=== PATIENT | male | born 1975 | race American Indian/Alaskan Native ===

== ENCOUNTER 2017-06-17 15:13 | Emergency (ER) | payer SELFPAY ==
[2017-06-17 15:32] VITALS: BP 142/90
== END 2017-06-17 17:47 | disposition left against medical advice (07) ==
LOC: ED 15:13
DX: M54.9 Dorsalgia, unspecified (principal); Z53.21 Procedure and treatment not carried out due to patient leaving prior to being seen by health care provider

== ENCOUNTER 2017-07-03 10:36 | Emergency (ER) | payer OTHER ==
[2017-07-03 10:44] VITALS: BP 151/96
[2017-07-03 11:53] LABS: Hematocrit 43.2 % (35.5-45.6); Hemoglobin 14.5 gm/dl (11.8-15.2); Mean Corpuscular HGB Conc 34 % (32-34); Mean Corpuscular Hemoglobin 32 pg (28-32); Mean Corpuscular Volume 96 fl (84-94); Platelet Count 217 K/mm3 (140-440); Red Blood Count 4.52 M/mm3 (3.65-5.03)
--- NOTE | 2017-07-03 12:07 | XRay Report ---
Chest 2 views: History: Cough and chest pain. Findings: Normal cardiomediastinal silhouette. Trachea is midline. No consolidation, pneumothorax or pleural effusion. Impression: No acute cardiopulmonary findings.
[2017-07-03 12:30] LABS: BUN/Creatinine Ratio 7; Blood Urea Nitrogen 6 mg/dL (9-20); Calcium 9.4 mg/dL (8.4-10.2); Hemolysis Index 13
--- NOTE | 2017-07-03 15:13 | Emergency Department Report ---
Minor Respiratory - HPI Chief Complaint: Upper Respiratory Infection Stated Complaint: FLU LIKE SYMPTOMS Time Seen by Provider: 07/03/17 15:11 ED Review of Systems ROS: Stated complaint: FLU LIKE SYMPTOMS Other details as noted in HPI ED Past Medical Hx - Past Medical History Previous Medical History?: Yes Hx Asthma: Yes Additional medical history: chronic back pain - Surgical History Past Surgical History?: No - Social History Smoking Status: Never Smoker Substance Use Type: Prescribed - Medications Home Medications: Home Medications Medication Instructions Recorded Confirmed Last Taken Type ALBUTEROL Inhaler [Proair] 2 puff IH QID PRN 04/10/13 04/10/13 04/17/13 09:00 History HYDROcodone/APAP 5-325 [[place] 1 each PO Q6HR PRN #15 tablet 04/10/13 04/16/13 13:00 Rx 5/325 mg] Methocarbamol [Robaxin] 750 mg PO BID #14 tab 04/10/13 04/16/13 21:00 Rx Cyclobenzaprine [Flexeril] 10 mg PO BID PRN #14 tablet 04/17/13 Unknown Rx Hydrocodone Bit/Acetaminophen 1 - 2 each PO Q4-6H #14 tablet 04/17/13 Unknown Rx [Lortab 5-500 Tablet] Benzonatate 200 mg PO TID #30 capsule 07/03/17 Unknown Rx Fluticasone [Flonase] 1 spray NS QDAY #1 bottle 07/03/17 Unknown Rx Oseltamivir [Tamiflu] 75 mg PO BID 5 Days #10 cap 07/03/17 Unknown Rx Minor Respiratory Exam - Exam General: Vital signs noted. No distress. Alert and acting appropriately. Neurologic: Alert and oriented, no deficits. Musculoskeletal: Unremarkable. ED Course Vital Signs 07/03/17 10:40 Temperature 97.8 F Pulse Rate 108 H Respiratory 20 Rate Blood Pressure 151/96 O2 Sat by Pulse 98 Oximetry ED Medical Decision Making - Lab Data Result diagrams: 07/03/17 11:37 07/03/17 11:37 - Radiology Data Radiology results: image reviewed Findings: Normal cardiomediastinal silhouette. Trachea is midline. No consolidation, pneumothorax or pleural effusion. Impression: No acute cardiopulmonary findings. - Medical Decision Making 42 y.o. male presents with flu-like symptoms for 2 days. Currently taking theraflu, mucinex, and amoxicillin. WBC 11.9, on amoxicillin for tooth caries, taken for 3 days, f/u with dentist after 7 days of antibiotics. EKG: SR, CXR: normal, rapid influenza: negative Appears to be viral syndrome, started on tamiflu, benzonatate, and flonase. Follow-up with PCP or ER if symptoms are not improved. Critical care attestation.: If time is entered above; I have spent that time in minutes in the direct care of this critically ill patient, excluding procedure time. ED Disposition Clinical Impression: Viral syndrome URI (upper respiratory infection) Qualifiers: URI type: acute nasopharyngitis (common cold) Qualified Code(s): J00 - Acute nasopharyngitis [common cold] Disposition: TO HOME OR SELFCARE Is pt being admited?: No Does the pt Need Aspirin: No Condition: Stable Instructions: Viral Syndrome (ED), Cold Symptoms (ED), Upper Respiratory Infection (ED) Additional Instructions: Wash hands frequently. The cough can last for 2-3 weeks. Use tylenol and ibuprofen should be taken with regular fluid intake. Follow up with primary care provider. Seek medical attention if fever, headache, wheezing, or chest symptoms worsen. If drowsy or confused in the short term or if cough last longer than 4 weeks. Prescriptions: Benzonatate 200 mg PO TID #30 capsule Fluticasone [Flonase] 1 spray NS QDAY #1 bottle Oseltamivir [Tamiflu] 75 mg PO BID 5 Days #10 cap Referrals: PRIMARY CARE, [Primary Care Provider] - 3-5 Days [facility] [Outside] - 3-5 Days [facility] [Outside] - 3-5 Days [facility] [Outside] - 3-5 Days [facility] [Outside] - 3-5 Days Time of Disposition: 16:38 Print Language: COLOMBIAN
== END 2017-07-03 16:47 | disposition home or self-care (01) ==
LOC: ED 10:36
DX: J00 Acute nasopharyngitis [common cold] (principal); J06.9 Acute upper respiratory infection, unspecified; M54.5 Low back pain; G89.29 Other chronic pain
CPT/HCPCS: 36415; 71046; 80048; 85027; 87400; 93005; 93010; 99284

== ENCOUNTER 2019-09-12 17:36 | Emergency (ER) | payer SELFPAY ==
[2019-09-12 18:04] VITALS: BP 157/94
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
[2019-09-12 18:33] LABS: Basophils # (Auto) 0.1 K/mm3 (0.0-0.1); Basophils % (Auto) 1.4 % (0.0-1.8); Eosinophils # (Auto) 0.1 K/mm3 (0.0-0.4); Eosinophils % (Auto) 0.5 % (0.0-4.3); Hematocrit 41.6 % (35.5-45.6); Hemoglobin 14.6 gm/dl (11.8-15.2); Lymphocytes # (Auto) 1.9 K/mm3 (1.2-5.4); Lymphocytes % (Auto) 19.9 % (13.4-35.0); Mean Corpuscular HGB Conc 35 % (32-34); Mean Corpuscular Volume 92 fl (84-94); Monocytes # (Auto) 0.6 K/mm3 (0.0-0.8); Monocytes % (Auto) 6.5 % (0.0-7.3); Platelet Count 296 K/mm3 (140-440); Red Cell Distribution Width 13.5 % (13.2-15.2)
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
[2019-09-12 18:44] LABS: BUN/Creatinine Ratio 8; Blood Urea Nitrogen 9 mg/dL (9-20); Calcium 9.9 mg/dL (8.4-10.2); Hemolysis Index 7
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
--- NOTE | 2019-09-12 19:19 | Ultrasound Report ---
Scrotal ultrasound INDICATION: Testicular pain FINDINGS: The right testis measures 3.4 x 2.5 x 2.3 cm. It shows homogeneous echogenicity without int ra or extratesticular mass. There is good arterial flow to the right testis with no evidence of torsi on. There is a minimal right hydrocele. No epididymitis. The left testis measures 3.6 x 3.1 x 2.1 cm and also shows homogeneous echogenicity without mass or torsion. Small left hydrocele is seen as well . IMPRESSION: No significant abnormality. Signer Name: Juan Jose Rubin MD Signed: 09/12/2019 7:14 PM Workstation Name: [id number]
[2019-09-12] MEDS ORDERED: oxyCODONE /ACETAMINOPHEN 5-325MG TAB PO ONE (19:41)
[2019-09-12] MEDS ORDERED: CYCLOBENZAPRINE 10 MG TAB PO ONE (19:41)
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
--- NOTE | 2019-09-12 20:30 | XRay Report ---
CHEST 1 VIEW INDICATION / CLINICAL INFORMATION: shortness of breath. COMPARISON: 07/03/2017 FINDINGS: SUPPORT DEVICES: None. HEART / MEDIASTINUM: No significant abnormality. LUNGS / PLEURA: No significant pulmonary or pleural abnormality. No pneumothorax. ADDITIONAL FINDINGS: No significant additional findings. IMPRESSION: 1. No significant change Signer Name: Juan Jose Rubin MD Signed: 09/12/2019 8:26 PM Workstation Name: [id number]
== END 2019-09-12 20:29 | disposition home or self-care (01) ==
LOC: ED 17:36
DX: S39.012A Strain of muscle, fascia and tendon of lower back, initial encounter (principal); F17.200 Nicotine dependence, unspecified, uncomplicated; J45.909 Unspecified asthma, uncomplicated; N50.82 Scrotal pain; R51 Headache; V49.49XA Driver injured in collision with other motor vehicles in traffic accident, initial encounter; Y93.89 Activity, other specified; Y92.89 Other specified places as the place of occurrence of the external cause; Y99.8 Other external cause status
CPT/HCPCS: 36415; 70450; 71045; 72100; 72125; 80048; 85025; 93975

== ENCOUNTER 2021-03-29 11:48 | Emergency (ER) | payer SELFPAY ==
[2021-03-29 12:07] VITALS: BP 140/78
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
== END 2021-03-29 12:58 | disposition home or self-care (01) ==
LOC: ED 11:48
DX: J01.90 Acute sinusitis, unspecified (principal); J20.9 Acute bronchitis, unspecified; J45.909 Unspecified asthma, uncomplicated; F17.200 Nicotine dependence, unspecified, uncomplicated; G89.29 Other chronic pain; Z72.89 Other problems related to lifestyle; Z79.899 Other long term (current) drug therapy
CPT/HCPCS: 99282

== ENCOUNTER 2021-04-01 15:02 | Emergency (ER) | payer SELFPAY ==
[2021-04-01] MEDS ORDERED: IPRATROPIUM/ALBUTEROL SULFATE 3 ML AMPUL.NEB IH ONE (15:15)
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
[2021-04-01 15:30] VITALS: BP 153/109
[2021-04-01] MEDS ORDERED: predniSONE 20 MG TAB PO NR (16:00)
== END 2021-04-01 15:54 | disposition home or self-care (01) ==
LOC: ED 15:02
DX: J45.901 Unspecified asthma with (acute) exacerbation (principal); Z76.0 Encounter for issue of repeat prescription; R03.0 Elevated blood-pressure reading, without diagnosis of hypertension; F17.210 Nicotine dependence, cigarettes, uncomplicated; G89.29 Other chronic pain; Z79.899 Other long term (current) drug therapy
CPT/HCPCS: 94640; 99282

== ENCOUNTER 2021-04-14 09:22 | Emergency (ER) | payer SELFPAY ==
[2021-04-14 09:37] VITALS: BP 140/94
--- NOTE | 2021-04-14 10:14 | Emergency Department Report ---
ED General Adult HPI - General Chief complaint: Chest Pain Stated complaint: CHEST PAIN Time Seen by Provider: 04/14/21 10:01 Source: patient Mode of arrival: Ambulatory Limitations: No Limitations - History of Present Illness Initial comments: Patient is 46 years old male with history of hypertension and asthma. Patient presented to the ER complaining of right-sided chest pain is been going on for 2 weeks ago. Patient stated the symptoms started with cough congestion and shortness of breath and he is feeling he is getting better however the chest pain still. Patient describes his chest pain as sharp increase with deep inspiration. Patient currently denying any fever or chills. Patient denied any long period of immobilization. - Related Data Previous Rx's Medication Instructions Recorded Last Taken Type ALBUTEROL NEB's [Proventil 0.083% 2.5 mg IH TID PRN #1 box 04/01/21 Unknown Rx NEBS] Albuterol Mdi (or & Nicu Only) 2 puff IH QID PRN #1 inhalation 04/01/21 Unknown Rx [ProAir HFA Inhaler] predniSONE [Deltasone] 20 mg PO DAILY #5 tablet 04/01/21 Unknown Rx Naproxen [Naprosyn] 500 mg PO BID #14 tablet 04/14/21 Unknown Rx Allergies Allergy/AdvReac Type Severity Reaction Status Date / Time No Known Allergies Allergy Verified 04/14/21 09:34 ED Review of Systems ROS: Stated complaint: CHEST PAIN Other details as noted in HPI Comment: All other systems reviewed and negative Constitutional: denies: chills, fever Respiratory: cough. denies: orthopnea, shortness of breath, SOB with exertion, SOB at rest, wheezing Cardiovascular: chest pain, palpitations. denies: dyspnea on exertion, ort hopnea Gastrointestinal: denies: abdominal pain, nausea, vomiting Musculoskeletal: denies: back pain Neurological: denies: headache, weakness, numbness, paresthesias, confusion ED Past Medical Hx - Past Medical History Hx Hypertension: Yes Hx Asthma: Yes Additional medical history: chronic back pain - Surgical History Past Surgical History?: No - Social History Smoking Status: Current Every Day Smoker Substance Use Type: Alcohol - Medications Home Medications: Home Medications Medication Instructions Recorded Confirmed Last Taken Type ALBUTEROL NEB's [Proventil 0.083% 2.5 mg IH TID PRN #1 box 04/01/21 Unknown Rx NEBS] Albuterol Mdi (or & Nicu Only) 2 puff IH QID PRN #1 inhalation 04/01/21 Unknown Rx [ProAir HFA Inhaler] predniSONE [Deltasone] 20 mg PO DAILY #5 tablet 04/01/21 Unknown Rx Naproxen [Naprosyn] 500 mg PO BID #14 tablet 04/14/21 Unknown Rx ED Physical Exam - General Limitations: No Limitations General appearance: alert, in no apparent distress - Head Head exam: Present: atraumatic, normocephalic, normal inspection - Eye Eye exam: Present: normal appearance, PERRL - ENT ENT exam: Present: normal exam, normal orophraynx, mucous membranes moist - Neck Neck exam: Present: normal inspection, full ROM. Absent: tenderness, meningismus - Respiratory Respiratory exam: Present: normal lung sounds bilaterally - Cardiovascular Cardiovascular Exam: Present: tachycardia - GI/Abdominal GI/Abdominal exam: Present: soft, normal bowel sounds. Absent: distended, tenderness, guarding, rebound, rigid, organomegaly, bruit, pulsatile mass, hernia - Extremities Exam Extremities exam: Present: normal inspection, full ROM, normal capillary refill. Absent: tenderness - Back Exam Back exam: Present: normal inspection, full ROM. Absent: CVA tenderness (R), CVA tenderness (L) - Neurological Exam Neurological exam: Present: alert, oriented X3, CN II-XII intact, normal gait, reflexes normal. Absent: motor sensory deficit - Psychiatric Psychiatric exam: Present: normal mood - Skin Skin exam: Present: warm, intact, normal color ED Course Vital Signs 04/14/21 09:35 Temperature 98 F Pulse Rate 111 H Respiratory 18 Rate Blood Pressure 140/94 [Right] O2 Sat by Pulse 100 Oximetry ED Medical Decision Making - Lab Data Result diagrams: 04/14/21 10:19 04/14/21 10:19 - EKG Data -: EKG Interpreted by Md EKG shows normal: sinus rhythm Rate: tachycardia - Radiology Data Radiology results: report reviewed - Medical Decision Making Patient is 46 years old male with history of hypertension and asthma. Patient presented to the ER complaining of right-sided chest pain is been going on for 2 weeks ago. Patient stated the symptoms started with cough congestion and shortness of breath and he is feeling he is getting better however the chest pain still. Patient describes his chest pain as sharp increase with deep inspiration. Patient currently denying any fever or chills. Patient denied any long period of immobilization. Patient remained stable in the ER with stable vital signs except for tachycardia of 111. EKG shows sinus tachycardia. Labs reviewed and is unremarkable including a negative troponin however his D-dimer is 500. Patient received a CTA of the chest showed no evidence of pulmonary embolism or pneumonia. Patient symptom is most likely related to pleurisy or costochondritis however patient strongly advised to follow-up with his primary doctor in the next 2 to 3 days and to return to the ER if he develop any new symptoms or if his symptoms get worse. Critical care attestation.: If time is entered above; I have spent that time in minutes in the direct care of this critically ill patient, excluding procedure time. ED Disposition Clinical Impression: Acute chest pain, Pleurisy Disposition: 01 HOME / SELF CARE / HOMELESS Is pt being admited?: No Condition: Stable Instructions: Nonspecific Chest Pain, Adult, Pleurisy, [id number], Chest Pain (ED) Prescriptions: Naproxen [Naprosyn] 500 mg PO BID #14 tablet Referrals: PRIMARY CARE, [Primary Care Provider] - 3-5 Days
--- NOTE | 2021-04-14 10:41 | XRay Report ---
CHEST 2 VIEWS INDICATION: Chest Pain. COMPARISON: 09/12/2019 FINDINGS: Support devices: None. Heart: Within normal limits. Lungs/pleura: No acute air space or interstitial disease. No pneumothorax. Additional findings: None. IMPRESSION: No acute findings. Signer Name: Yovani Padgett Jr, MD Signed: 04/14/2021 10:37 AM Workstation Name: [id number]
[2021-04-14 11:03] LABS: BUN/Creatinine Ratio 13; Blood Urea Nitrogen 10 mg/dL (9-20); Calcium 9.6 mg/dL (8.4-10.2); Hemolysis Index 12
[2021-04-14 11:13] LABS: Alanine Aminotransferase 14 units/L (7-56); Albumin 4.6 g/dL (3.9-5)
[2021-04-14 11:14] LABS: Bilirubin,Direct < 0.2 mg/dL (0-0.2)
[2021-04-14 11:31] LABS: Basophils # (Auto) 0.1 K/mm3 (0.0-0.1); Eosinophils # (Auto) 1.1 K/mm3 (0.0-0.4); Eosinophils % (Auto) 8.6 % (0.0-4.3); Hematocrit 46.8 % (35.5-45.6); Hemoglobin 16.2 gm/dl (11.8-15.2); Lymphocytes # (Auto) 2.7 K/mm3 (1.2-5.4); Lymphocytes % (Auto) 21.4 % (13.4-35.0); Mean Corpuscular HGB Conc 35 % (32-34); Mean Corpuscular Volume 95 fl (84-94); Monocytes % (Auto) 8.1 % (0.0-7.3); Platelet Count 315 K/mm3 (140-440); Red Blood Count 4.94 M/mm3 (3.65-5.03); Red Cell Distribution Width 13.9 % (13.2-15.2)
--- NOTE | 2021-04-14 13:35 | Cat Scan Report ---
CTA CHEST WITH CONTRAST INDICATION / CLINICAL INFORMATION: Chest pain with shortness of breath. TECHNIQUE: Axial CT images were obtained through the chest after injection of Omnipaque 300, 100 cc I V contrast. 3 plane MIP and/or 3D reconstructions were produced. All CT scans at this location are pe rformed using CT dose reduction for ALARA by means of automated exposure control. COMPARISON: None available. FINDINGS: PULMONARY ARTERIES: No pulmonary emboli. THORACIC AORTA: No significant abnormality. HEART: No significant abnormality. CORONARY ARTERY CALCIFICATION: None. MEDIASTINUM / SHA: No significant abnormality. PLEURA: No pleural effusion. No pneumothorax. LUNGS: No acute air space or interstitial disease. ADDITIONAL FINDINGS: None. UPPER ABDOMEN: No acute findings. SKELETAL STRUCTURES: No significant osseous abnormality. IMPRESSION: 1. No CT evidence for pulmonary embolism. 2. Negative for pneumonia. Signer Name: Alexsander Hagen MD Signed: 04/14/2021 1:30 PM Workstation Name: [id number]
--- NOTE | 2021-04-15 10:55 | Electrocardiograph Report ---
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
== END 2021-04-14 14:10 | disposition home or self-care (01) ==
LOC: ED 09:22
DX: R07.89 Other chest pain (principal); R07.81 Pleurodynia; I10 Essential (primary) hypertension; J45.909 Unspecified asthma, uncomplicated; F17.200 Nicotine dependence, unspecified, uncomplicated; G89.29 Other chronic pain; Z72.89 Other problems related to lifestyle; Z79.899 Other long term (current) drug therapy
CPT/HCPCS: 36415; 71046; 71275; 80048; 80076; 84484; 85025; 85379; 93005; 99284; Q9967

== ENCOUNTER 2021-05-07 15:28 | Emergency (ER) | payer SELFPAY | END 2021-05-07 16:28 | LOC: ED 15:28 | DX: J11.1 Influenza due to unidentified influenza virus with other respiratory manifestations (principal); Z53.21 Procedure and treatment not carried out due to patient leaving prior to being seen by health care provider ==

== ENCOUNTER 2021-05-15 14:46 | Emergency (ER) | payer SELFPAY ==
[2021-05-15 15:02] VITALS: BP 106/71
--- NOTE | 2021-05-15 16:07 | Emergency Department Report ---
- General Chief Complaint: Adult Asthma Stated Complaint: ASTHMA Time Seen by Provider: 05/15/21 15:57 Source: patient Mode of arrival: Ambulatory Limitations: No Limitations - History of Present Illness Initial Comments: 46-year-old male presents to the emergency department complaining of cough, congestion, and body aches. The patient states that his symptoms started about 1 week ago. He has a history of asthma and states that he only gets sick about once every 5 years. This current episode seems to be getting worse and he is running out of his albuterol with his nebulizer and his rescue inhaler is empty. His cough is productive with a hurd to brown mucus. He states that he is coughing so hard that it is causing his neck and back to hurt. He is unaware of any fevers and denies any hemoptysis. He did have an episode of posttussive emesis at work today and had to leave. MD Complaint: cough, nasal congestion -: Gradual Severity: severe Quality: dull Consistency: constant Improves With: nothing Worsens With: activity, deep breaths Associated Symptoms: myalgias, headache, cough, vomiting. denies: fever, chills, chest pain, abdominal pain, nausea Treatments Prior to Arrival: Acetaminophen, Ibuprofen, "cold medicine" - Related Data Previous Rx's Medication Instructions Recorded Last Taken Type Naproxen [Naprosyn] 500 mg PO BID #14 tablet 04/14/21 Unknown Rx ALBUTEROL NEB's [Proventil 0.083% 2.5 mg IH TID PRN #1 box 05/15/21 Unknown Rx NEBS] Albuterol Mdi (or & Nicu Only) 2 puff IH QID PRN #1 inhalation 05/15/21 Unknown Rx [ProAir HFA Inhaler] Promethazine Dm (Nf) [Phenergan Dm 5 ml PO Q6H PRN #120 ml 05/15/21 Unknown Rx 6.25/15 mg 5 ml] predniSONE [Deltasone] 20 mg PO DAILY #5 tablet 05/15/21 Unknown Rx Allergies Allergy/AdvReac Type Severity Reaction Status Date / Time No Known Allergies Allergy Verified 05/15/21 15:02 ED Review of Systems ROS: Stated complaint: ASTHMA Other details as noted in HPI Comment: All other systems reviewed and negative ENT: congestion Respiratory: cough, SOB with exertion, wheezing Gastrointestinal: vomiting ED Past Medical Hx - Past Medical History Hx Hypertension: Yes Hx Asthma: Yes Additional medical history: chronic back pain - Social History Smoking Status: Current Every Day Smoker Substance Use Type: Alcohol - Medications Home Medications: Home Medications Medication Instructions Recorded Confirmed Last Taken Type Naproxen [Naprosyn] 500 mg PO BID #14 tablet 04/14/21 Unknown Rx ALBUTEROL NEB's [Proventil 0.083% 2.5 mg IH TID PRN #1 box 05/15/21 Unknown Rx NEBS] Albuterol Mdi (or & Nicu Only) 2 puff IH QID PRN #1 inhalation 05/15/21 Unknown Rx [ProAir HFA Inhaler] Promethazine Dm (Nf) [Phenergan Dm 5 ml PO Q6H PRN #120 ml 05/15/21 Unknown Rx 6.25/15 mg 5 ml] predniSONE [Deltasone] 20 mg PO DAILY #5 tablet 05/15/21 Unknown Rx ED Physical Exam - General Limitations: No Limitations General appearance: alert, in no apparent distress - Head Head exam: Present: atraumatic, normocephalic - Eye Eye exam: Present: normal appearance - ENT ENT exam: Present: mucous membranes moist - Neck Neck exam: Present: normal inspection - Respiratory Respiratory exam: Present: normal lung sounds bilaterally. Absent: respiratory distress - Cardiovascular Cardiovascular Exam: Present: regular rate, normal rhythm. Absent: systolic murmur, diastolic murmur, rubs, gallop - GI/Abdominal GI/Abdominal exam: Present: soft, normal bowel sounds - Rectal Rectal exam: Present: deferred - Extremities Exam Extremities exam: Present: normal inspection - Back Exam Back exam: Present: normal inspection - Neurological Exam Neurological exam: Present: alert, oriented X3 - Psychiatric Psychiatric exam: Present: normal affect, normal mood - Skin Skin exam: Present: warm, dry, intact, normal color. Absent: rash ED Course Vital Signs 05/15/21 15:00 Temperature 98.3 F Pulse Rate 87 Respiratory 18 Rate Blood Pressure 106/71 [Left] O2 Sat by Pulse 96 Oximetry ED Medical Decision Making - Medical Decision Making 46-year-old male with a history of asthma presents to the emergency department with upper respiratory symptoms. He denies fevers, hemoptysis, chest pain, palpitations, or lower extremity swelling. His exam is consistent with bronchitis. He states that he does have a tendency to develop pneumonia when he starts to get this sick and is concerned he may develop pneumonia again. He is amenable to outpatient treatment and I will send him home with antibiotics, steroids, and more albuterol, as well as some cough medicine. He will follow-up with his primary care provider. Return precautions were given. Critical care attestation.: If time is entered above; I have spent that time in minutes in the direct care of this critically ill patient, excluding procedure time. ED Disposition Clinical Impression: Acute bronchitis Disposition: HOME / SELF CARE / HOMELESS Is pt being admited?: No Does the pt Need Aspirin: No Condition: Stable Instructions: Acute Bronchitis (ED), Acute Bronchitis, Adult Prescriptions: predniSONE [Deltasone] 20 mg PO DAILY #5 tablet Promethazine Dm (Nf) [Phenergan Dm 6.25/15 mg 5 ml] 5 ml PO Q6H PRN #120 ml PRN Reason: Cough Albuterol Mdi (or & Nicu Only) [ProAir HFA Inhaler] 2 puff IH QID PRN #1 inhalation PRN Reason: Shortness Of Breath ALBUTEROL NEB's [Proventil 0.083% NEBS] 2.5 mg IH TID PRN #1 box PRN Reason: Wheezing Time of Disposition: 16:12
== END 2021-05-15 16:20 | disposition home or self-care (01) ==
LOC: ED 14:46
DX: J20.9 Acute bronchitis, unspecified (principal); I10 Essential (primary) hypertension; J45.909 Unspecified asthma, uncomplicated; F17.200 Nicotine dependence, unspecified, uncomplicated
CPT/HCPCS: 99282

== ENCOUNTER 2021-06-24 14:18 | Emergency (ER) | payer SELFPAY ==
[2021-06-24 14:25] VITALS: BP 123/77
--- NOTE | 2021-06-24 16:16 | Emergency Department Report ---
ED General Adult HPI - General Chief complaint: Nausea/Vomiting/Diarrhea Stated complaint: HIGH BLOOD PRESSURE, SICK Time Seen by Provider: 06/24/21 16:11 Source: patient Mode of arrival: Ambulatory Limitations: No Limitations - History of Present Illness Initial comments: 46-year-old -[place] male patient presents with complaints of nasal congestion, facial pain, and chills x10 days, worsening. He also complains of intermittent low back pain [place] heavy [place]. No difficulty with ambulation, fever, loss of bladder/bowel control, chronic steroid use, IV drug use, or history of cancer per patient. He states he had a negative COVID-19 test 1 week ago. Patient also requesting a refill of his amlodipine 5 mg and states his insurance does not begin until June next year so he has not been able to see a primary care doctor. He has been out of his medication for 3 days per patient - Related Data Previous Rx's Medication Instructions Recorded Last Taken Type ALBUTEROL NEB's [Proventil 0.083% 2.5 mg IH TID PRN #1 box 05/15/21 Unknown Rx NEBS] Doxycycline Monohydrate 100 mg PO BID #20 tablet 05/15/21 Unknown Rx Promethazine Dm (Nf) [Phenergan Dm 5 ml PO Q6H PRN #120 ml 05/15/21 Unknown Rx 6.25/15 mg 5 ml] predniSONE [Deltasone] 20 mg PO DAILY #5 tablet 05/15/21 Unknown Rx Albuterol Mdi (or & Nicu Only) 2 puff IH QID PRN #1 inhalation 06/24/21 Unknown Rx [ProAir HFA Inhaler] Amoxicillin/Potassium Clav 1 each PO BID 7 Days #14 tablet 06/24/21 Unknown Rx [Augmentin 875-125 Tablet] Naproxen [Naprosyn TAB] 500 mg PO BID PRN #20 tablet 06/24/21 Unknown Rx Prednisone [predniSONE 10 mg 10 mg PO .TAPER #1 tab.ds.pk 06/24/21 Unknown Rx (6-Day Pack, 21 Tabs)] amLODIPine 5 mg PO DAILY 30 Days #30 tab 06/24/21 Unknown Rx methocarbamoL [Methocarbamol] 750 mg PO TID PRN #20 tablet 06/24/21 Unknown Rx Allergies Allergy/AdvReac Type Severity Reaction Status Date / Time No Known Allergies Allergy Verified 05/15/21 15:02 ED Review of Systems ROS: Stated complaint: HIGH BLOOD PRESSURE, SICK Other details as noted in HPI Constitutional: chills. denies: diaphoresis, fever, malaise ENT: congestion. denies: throat pain Respiratory: denies: cough, shortness of breath Cardiovascular: denies: chest pain Gastrointestinal: diarrhea (resolved). denies: nausea, vomiting, constipation, melena, hematochezia Genitourinary: denies: urgency, dysuria, hematuria Skin: denies: rash, lesions, change in color ED Past Medical Hx - Past Medical History Hx Hypertension: Yes Hx Asthma: Yes Additional medical history: chronic back pain - Social History Smoking Status: Current Every Day Smoker Substance Use Type: Alcohol - Medications Home Medications: Home Medications Medication Instructions Recorded Confirmed Last Taken Type ALBUTEROL NEB's [Proventil 0.083% 2.5 mg IH TID PRN #1 box 05/15/21 Unknown Rx NEBS] Doxycycline Monohydrate 100 mg PO BID #20 tablet 05/15/21 Unknown Rx Promethazine Dm (Nf) [Phenergan Dm 5 ml PO Q6H PRN #120 ml 05/15/21 Unknown Rx 6.25/15 mg 5 ml] predniSONE [Deltasone] 20 mg PO DAILY #5 tablet 05/15/21 Unknown Rx Albuterol Mdi (or & Nicu Only) 2 puff IH QID PRN #1 inhalation 06/24/21 Unknown Rx [ProAir HFA Inhaler] Amoxicillin/Potassium Clav 1 each PO BID 7 Days #14 tablet 06/24/21 Unknown Rx [Augmentin 875-125 Tablet] Naproxen [Naprosyn TAB] 500 mg PO BID PRN #20 tablet 06/24/21 Unknown Rx Prednisone [predniSONE 10 mg 10 mg PO .TAPER #1 tab.ds.pk 06/24/21 Unknown Rx (6-Day Pack, 21 Tabs)] amLODIPine 5 mg PO DAILY 30 Days #30 tab 06/24/21 Unknown Rx methocarbamoL [Methocarbamol] 750 mg PO TID PRN #20 tablet 06/24/21 Unknown Rx ED Physical Exam - General Limitations: No Limitations General appearance: alert, in no apparent distress - Head Head exam: Present: atraumatic, normocephalic - Eye Eye exam: Present: normal appearance - ENT ENT exam: Present: other (Tenderness to palpation bilaterally to maxillary sinuses without overlying facial swelling or redness no) - Neck Neck exam: Present: normal inspection, full ROM - Respiratory Respiratory exam: Present: normal lung sounds bilaterally. Absent: respiratory distress - Cardiovascular Cardiovascular Exam: Present: regular rate, normal rhythm - Extremities Exam Extremities exam: Present: full ROM - Back Exam Back exam: Present: full ROM. Absent: CVA tenderness (R), paraspinal tenderness, vertebral tenderness - Expanded Back Exam Expanded Back exam: Absent: saddle anesthesia - Neurological Exam Neurological exam: Present: alert, oriented X3 - Psychiatric Psychiatric exam: Present: normal affect, normal mood - Skin Skin exam: Present: warm, dry, intact, normal color. Absent: rash ED Course Vital Signs 06/24/21 14:23 Temperature 99.1 F Pulse Rate 95 H Respiratory 16 Rate Blood Pressure 123/77 O2 Sat by Pulse 99 Oximetry ED Medical Decision Making - Medical Decision Making 46-year-old -[place] male patient presents with complaints of nasal congestion, facial pain, and chills x10 days, worsening. He also complains of intermittent low back pain since [place] and doing a great deal heavy lifting. No difficulty with ambulation, fever, loss of bladder/bowel control, chronic steroid use, IV drug use, or history of cancer per patient. He states he had a negative COVID-19 test 1 week ago. Patient also requesting a refill of his amlodipine 5 mg and states his insurance does not begin until June next year so he has not been able to see a primary care doctor. He has been out of his medication for 3 days per patient We will treat for acute bacterial sinusitis given worsening symptoms after 10 days. Refills also given for amlodipine. Robaxin and naproxen for back pain. Recommend follow-up with primary care doctor for further evaluation. Strict return precautions discussed in detail patient verbalized understand Critical care attestation.: If time is entered above; I have spent that time in minutes in the direct care of this critically ill patient, excluding procedure time. ED Disposition Clinical Impression: Medication refill, Acute bacterial sinusitis, Low back pain Disposition: HOME / SELF CARE / HOMELESS Is pt being admited?: No Condition: Stable Instructions: Sinusitis, Adult, [id number], Back Exercises, [id number], Lumbosacral Strain Prescriptions: amLODIPine 5 mg PO DAILY 30 Days #30 tab Amoxicillin/Potassium Clav [Augmentin 875-125 Tablet] 1 each PO BID 7 Days #14 tablet methocarbamoL [Methocarbamol] 750 mg PO TID PRN #20 tablet PRN Reason: muscle spasm/tightness Naproxen [Naprosyn TAB] 500 mg PO BID PRN #20 tablet PRN Reason: pain Prednisone [predniSONE 10 mg (6-Day Pack, 21 Tabs)] 10 mg PO .TAPER #1 tab.ds.pk Albuterol Mdi (or & Nicu Only) [ProAir HFA Inhaler] 2 puff IH QID PRN #1 inhalation PRN Reason: Shortness Of Breath Referrals: [facility] [Provider Group] - 3-5 Days Forms: Work/School Release Form(ED)
== END 2021-06-24 16:45 | disposition home or self-care (01) ==
LOC: ED 14:18
DX: J01.90 Acute sinusitis, unspecified (principal); I10 Essential (primary) hypertension; J45.909 Unspecified asthma, uncomplicated; F17.200 Nicotine dependence, unspecified, uncomplicated; B96.89 Other specified bacterial agents as the cause of diseases classified elsewhere; M54.50 Low back pain, unspecified
CPT/HCPCS: 99281

== ENCOUNTER 2021-07-31 15:11 | Emergency (ER) | payer SELFPAY ==
[2021-07-31 16:13] VITALS: BP 147/94
--- NOTE | 2021-07-31 18:07 | XRay Report ---
CHEST 2 VIEWS INDICATION / CLINICAL INFORMATION: cough. COMPARISON: 04/14/2021 FINDINGS: SUPPORT DEVICES: None. HEART / MEDIASTINUM: No significant abnormality. LUNGS / PLEURA: No significant pulmonary or pleural abnormality. No pneumothorax. ADDITIONAL FINDINGS: No significant additional findings. IMPRESSION: 1. No acute findings. Signer Name: Jose Juarez MD Signed: 07/31/2021 6:03 PM Workstation Name: [id number]
--- NOTE | 2021-07-31 18:13 | Emergency Department Report ---
ED General Adult HPI - General Chief complaint: Upper Respiratory Infection Stated complaint: HARD COUGHING/SICK Time Seen by Provider: 07/31/21 17:45 Source: patient, family Mode of arrival: Ambulatory Limitations: No Limitations - History of Present Illness Initial comments: 46-year-old -[place] male patient presents with complaints of nasal c ongestion and facial pain x2-1/2 weeks and cough and wheezing x10 days. Patient states his symptoms are worsening. He reports he stopped smoking about 2 months ago. He states tactile fever. Patient states he has had 1 dose of the COVID-19 vaccine. He denies any hemoptysis, chest pain, loss of taste or smell, or shortness of breath. Patient states he has tried many OTC medications without improvement in his symptoms - Related Data Previous Rx's Medication Instructions Recorded Last Taken Type Promethazine Dm (Nf) [Phenergan Dm 5 ml PO Q6H PRN #120 ml 05/15/21 Unknown Rx 6.25/15 mg 5 ml] predniSONE [Deltasone] 20 mg PO DAILY #5 tablet 05/15/21 Unknown Rx Amoxicillin/Potassium Clav 1 each PO BID 7 Days #14 tablet 06/24/21 Unknown Rx [Augmentin 875-125 Tablet] Naproxen [Naprosyn TAB] 500 mg PO BID PRN #20 tablet 06/24/21 Unknown Rx methocarbamoL [Methocarbamol] 750 mg PO TID PRN #20 tablet 06/24/21 Unknown Rx ALBUTEROL NEB's [Proventil 0.083% 2.5 mg IH TID PRN #1 box 07/31/21 Unknown Rx NEBS] Albuterol Mdi (or & Nicu Only) 2 puff IH QID PRN #1 inhalation 07/31/21 Unknown Rx [ProAir HFA Inhaler] Benzonatate 200 mg PO TID PRN #30 cap 07/31/21 Unknown Rx Doxycycline Monohydrate 100 mg PO BID #20 tablet 07/31/21 Unknown Rx Prednisone [predniSONE 10 mg 10 mg PO .TAPER #1 tab.ds.pk 07/31/21 Unknown Rx (6-Day Pack, 21 Tabs)] amLODIPine 5 mg PO DAILY 30 Days #30 tab 07/31/21 Unknown Rx Allergies Allergy/AdvReac Type Severity Reaction Status Date / Time No Known Allergies Allergy Verified 05/15/21 15:02 ED Review of Systems ROS: Stated complaint: HARD COUGHING/SICK Other details as noted in HPI Constitutional: see HPI. denies: chills, malaise, weakness ENT: denies: throat pain Respiratory: cough, wheezing. denies: shortness of breath Cardiovascular: denies: chest pain Gastrointestinal: denies: abdominal pain, nausea, vomiting Skin: denies: rash Neurological: denies: headache Hematological/Lymphatic: denies: swollen glands ED Past Medical Hx - Past Medical History Previous Medical History?: Yes Hx Hypertension: Yes Hx Asthma: Yes Additional medical history: chronic back pain - Surgical History Past Surgical History?: No - Social History Smoking Status: Current Every Day Smoker Substance Use Type: Alcohol - Medications Home Medications: Home Medications Medication Instructions Recorded Confirmed Last Taken Type Promethazine Dm (Nf) [Phenergan Dm 5 ml PO Q6H PRN #120 ml 05/15/21 Unknown Rx 6.25/15 mg 5 ml] predniSONE [Deltasone] 20 mg PO DAILY #5 tablet 05/15/21 Unknown Rx Amoxicillin/Potassium Clav 1 each PO BID 7 Days #14 tablet 06/24/21 Unknown Rx [Augmentin 875-125 Tablet] Naproxen [Naprosyn TAB] 500 mg PO BID PRN #20 tablet 06/24/21 Unknown Rx methocarbamoL [Methocarbamol] 750 mg PO TID PRN #20 tablet 06/24/21 Unknown Rx ALBUTEROL NEB's [Proventil 0.083% 2.5 mg IH TID PRN #1 box 07/31/21 Unknown Rx NEBS] Albuterol Mdi (or & Nicu Only) 2 puff IH QID PRN #1 inhalation 07/31/21 Unknown Rx [ProAir HFA Inhaler] Benzonatate 200 mg PO TID PRN #30 cap 07/31/21 Unknown Rx Doxycycline Monohydrate 100 mg PO BID #20 tablet 07/31/21 Unknown Rx Prednisone [predniSONE 10 mg 10 mg PO .TAPER #1 tab.ds.pk 07/31/21 Unknown Rx (6-Day Pack, 21 Tabs)] amLODIPine 5 mg PO DAILY 30 Days #30 tab 07/31/21 Unknown Rx ED Physical Exam - General Limitations: No Limitations General appearance: alert, in no apparent distress - Head Head exam: Present: atraumatic, normocephalic - Eye Eye exam: Present: normal appearance. Absent: scleral icterus - ENT ENT exam: Present: other (Tenderness to palpation noted to frontal and maxillary sinuses bilaterally without overlying facial swelling noted) - Neck Neck exam: Present: normal inspection, full ROM. Absent: tenderness, lymphadenopathy - Respiratory Respiratory exam: Present: wheezes (Diffuse), rhonchi (Diffuse). Absent: respiratory distress, rales - Cardiovascular Cardiovascular Exam: Present: regular rate, normal rhythm - Neurological Exam Neurological exam: Present: alert, oriented X3, normal gait - Psychiatric Psychiatric exam: Present: normal affect, normal mood - Skin Skin exam: Present: warm, dry, intact, normal color. Absent: rash ED Course Vital Signs 07/31/21 16:09 Temperature 98.4 F Pulse Rate 94 H Respiratory 16 Rate Blood Pressure 147/94 [Right] O2 Sat by Pulse 94 Oximetry ED Medical Decision Making - Radiology Data Radiology results: report reviewed CHEST 2 VIEWS INDICATION / CLINICAL INFORMATION: cough. COMPARISON: 04/14/2021 FINDINGS: SUPPORT DEVICES: None. HEART / MEDIASTINUM: No significant abnormality. LUNGS / PLEURA: No significant pulmonary or pleural abnormality. No pneumothorax. ADDITIONAL FINDINGS: No significant additional findings. IMPRESSION: 1. No acute findings. - Medical Decision Making 46-year-old -[place] male patient presents with complaints of nasal congestion and facial pain x2-1/2 weeks and cough and wheezing x10 days. Patient states his symptoms are worsening. He reports he stopped smoking about 2 months ago. He states tactile fever. Patient states he has had 1 dose of the COVID-19 vaccine. He denies any hemoptysis, chest pain, loss of taste or smell, or shortness of breath. Patient states he has tried many OTC medications without improvement in his symptoms Chest x-ray is normal. Pulse ox is 97% on room air. Diffuse wheezing and rhonchi noted on lung exam and tenderness to the frontal and maxillary sinuses noted. He is stable for discharge home with treatment for acute bacterial sinusitis and acute bronchitis. Recommend follow-up with primary care in 3 to 5 days. He is otherwise well-appearing, his vitals are within normal limits, he is stable for discharge home. Strict return precautions were discussed in detail with patient who verbalizes understand Critical care attestation.: If time is entered above; I have spent that time in minutes in the direct care of this critically ill patient, excluding procedure time. ED Disposition Clinical Impression: Acute bacterial sinusitis, Acute bronchitis with asthma Disposition: HOME / SELF CARE / HOMELESS Is pt being admited?: No Condition: Stable Instructions: Acute Bronchitis (ED), Sinusitis, Adult, [id number], Acute Bronchitis, Adult, [id number] Prescriptions: amLODIPine 5 mg PO DAILY 30 Days #30 tab Benzonatate 200 mg PO TID PRN #30 cap PRN Reason: Cough Doxycycline Monohydrate 100 mg PO BID #20 tablet Prednisone [predniSONE 10 mg (6-Day Pack, 21 Tabs)] 10 mg PO .TAPER #1 tab.ds.pk Albuterol Mdi (or & Nicu Only) [ProAir HFA Inhaler] 2 puff IH QID PRN #1 inhalation PRN Reason: Shortness Of Breath ALBUTEROL NEB's [Proventil 0.083% NEBS] 2.5 mg IH TID PRN #1 box PRN Reason: Wheezing Referrals: PRIMARY CARE, [Primary Care Provider] - 3-5 Days Forms: Work/School Release Form(ED)
== END 2021-07-31 18:50 | disposition home or self-care (01) ==
LOC: ED 15:11
DX: J01.90 Acute sinusitis, unspecified (principal); J45.901 Unspecified asthma with (acute) exacerbation; I10 Essential (primary) hypertension; F17.200 Nicotine dependence, unspecified, uncomplicated; F10.20 Alcohol dependence, uncomplicated
CPT/HCPCS: 71046; 99283

== ENCOUNTER 2022-01-15 11:25 | Emergency (ER) | payer SELFPAY ==
--- NOTE | 2022-01-15 12:08 | Emergency Department Report ---
ED Recheck HPI - General Chief Complaint: Recheck/Abnormal Lab/Rx Stated Complaint: BLOOD PRESSURE MEDICATION Time Seen by Provider: 01/15/22 11:32 Source: patient Mode of arrival: Ambulatory Limitations: No Limitations - History of Present Illness Initial Comments: This is a 46-year-old male nontoxic, well nourished in appearance, no acute signs of distress presents to the ED with c/o of blood pressure medication refill an albuterol inhaler refill. Patient currently denies any symptoms or complaints. Patient denies any chest pain, shortness of breath, fever, chills, nausea, vomiting, headache, stiff neck or wheezing. Denies any allergies MD Complaint: medication refill request -: days(s) Returns Today for: request for prescription Symptoms Since Prior Visit: no new symptoms Associated Symptoms: none. denies: fever, chills, chest pain, shortness of breath, rash, malaise, nasuea, abdominal pain - Related Data Previous Rx's Medication Instructions Recorded Last Taken Type Promethazine Dm (Nf) [Phenergan Dm 5 ml PO Q6H PRN #120 ml 05/15/21 Unknown Rx 6.25/15 mg 5 ml] predniSONE [Deltasone] 20 mg PO DAILY #5 tablet 05/15/21 Unknown Rx Amoxicillin/Potassium Clav 1 each PO BID 7 Days #14 tablet 06/24/21 Unknown Rx [Augmentin 875-125 Tablet] Naproxen [Naprosyn TAB] 500 mg PO BID PRN #20 tablet 06/24/21 Unknown Rx methocarbamoL [Methocarbamol] 750 mg PO TID PRN #20 tablet 06/24/21 Unknown Rx ALBUTEROL NEB's [Proventil 0.083% 2.5 mg IH TID PRN #1 box 07/31/21 Unknown Rx NEBS] Albuterol Mdi (or & Nicu Only) 2 puff IH QID PRN #1 inhalation 07/31/21 Unknown Rx [ProAir HFA Inhaler] Benzonatate 200 mg PO TID PRN #30 cap 07/31/21 Unknown Rx Doxycycline Monohydrate 100 mg PO BID #20 tablet 07/31/21 Unknown Rx Prednisone [predniSONE 10 mg 10 mg PO .TAPER #1 tab.ds.pk 07/31/21 Unknown Rx (6-Day Pack, 21 Tabs)] amLODIPine 5 mg PO DAILY 30 Days #30 tab 07/31/21 Unknown Rx Albuterol Mdi (or & Nicu Only) 2 puff IH QID PRN #8.5 gram 01/15/22 Unknown Rx [ProAir HFA Inhaler] Amlodipine Besylate [Norvasc] 5 mg PO DAILY #30 tab 01/15/22 Unknown Rx Allergies Allergy/AdvReac Type Severity Reaction Status Date / Time No Known Allergies Allergy Verified 01/15/22 11:36 ED Review of Systems ROS: Stated complaint: BLOOD PRESSURE MEDICATION Other details as noted in HPI Comment: All other systems reviewed and negative Constitutional: denies: chills, fever Eyes: denies: eye pain, eye discharge, vision change ENT: denies: ear pain, throat pain Respiratory: denies: cough, shortness of breath, wheezing Cardiovascular: denies: chest pain, palpitations Endocrine: no symptoms reported Gastrointestinal: denies: abdominal pain, nausea, diarrhea Genitourinary: denies: urgency, dysuria Musculoskeletal: denies: back pain, joint swelling, arthralgia Skin: denies: rash, lesions Neurological: denies: headache, weakness, paresthesias Psychiatric: denies: anxiety, depression Hematological/Lymphatic: denies: easy bleeding, easy bruising ED Past Medical Hx - Past Medical History Hx Hypertension: Yes Hx Asthma: Yes Additional medical history: chronic back pain - Social History Smoking Status: Former Smoker Substance Use Type: None - Medications Home Medications: Home Medications Medication Instructions Recorded Confirmed Last Taken Type Promethazine Dm (Nf) [Phenergan Dm 5 ml PO Q6H PRN #120 ml 05/15/21 Unknown Rx 6.25/15 mg 5 ml] predniSONE [Deltasone] 20 mg PO DAILY #5 tablet 05/15/21 Unknown Rx Amoxicillin/Potassium Clav 1 each PO BID 7 Days #14 tablet 06/24/21 Unknown Rx [Augmentin 875-125 Tablet] Naproxen [Naprosyn TAB] 500 mg PO BID PRN #20 tablet 06/24/21 Unknown Rx methocarbamoL [Methocarbamol] 750 mg PO TID PRN #20 tablet 06/24/21 Unknown Rx ALBUTEROL NEB's [Proventil 0.083% 2.5 mg IH TID PRN #1 box 07/31/21 Unknown Rx NEBS] Albuterol Mdi (or & Nicu Only) 2 puff IH QID PRN #1 inhalation 07/31/21 Unknown Rx [ProAir HFA Inhaler] Benzonatate 200 mg PO TID PRN #30 cap 07/31/21 Unknown Rx Doxycycline Monohydrate 100 mg PO BID #20 tablet 07/31/21 Unknown Rx Prednisone [predniSONE 10 mg 10 mg PO .TAPER #1 tab.ds.pk 07/31/21 Unknown Rx (6-Day Pack, 21 Tabs)] amLODIPine 5 mg PO DAILY 30 Days #30 tab 07/31/21 Unknown Rx Albuterol Mdi (or & Nicu Only) 2 puff IH QID PRN #8.5 gram 01/15/22 Unknown Rx [ProAir HFA Inhaler] Amlodipine Besylate [Norvasc] 5 mg PO DAILY #30 tab 01/15/22 Unknown Rx ED Physical Exam - General Limitations: No Limitations General appearance: alert, in no apparent distress - Head Head exam: Present: atraumatic, normocephalic - Eye Eye exam: Present: normal appearance - Neck Neck exam: Present: normal inspection, full ROM. Absent: lymphadenopathy - Respiratory Respiratory exam: Present: normal lung sounds bilaterally. Absent: respiratory distress, wheezes, rales, rhonchi, stridor, chest wall tenderness, accessory muscle use, decreased breath sounds, prolonged expiratory - Cardiovascular Cardiovascular Exam: Present: normal rhythm - Extremities Exam Extremities exam: Present: full ROM - Back Exam Back exam: Present: full ROM - Neurological Exam Neurological exam: Present: alert, oriented X3, normal gait - Psychiatric Psychiatric exam: Present: normal affect, normal mood - Skin Skin exam: Present: warm, dry, intact, normal color. Absent: rash ED Course Vital Signs 01/15/22 11:32 Temperature 98.4 F Pulse Rate 110 H Respiratory 18 Rate Blood Pressure 149/115 [Left] O2 Sat by Pulse 97 Oximetry - Reevaluation(s) Reevaluation #1: 01/15/22 12:08 Patient is speaking in full sentences with no signs of distress noted. ED Recheck MDM - Medical Decision Making 46-year-old male that presents with medication refill. Patient is stable and was examined by me. Physical exam is unremarkable. I will discharge patient with Norvasc and albuterol as this is a medication that he is requesting and has been taking. Patient was instructed to follow-up with a primary care doctor in 3-5 days or if symptoms worsen and continue return to emergency room as soon as possible. At time of discharge, the patient does not seem toxic or ill in appearance. No acute signs of distress noted. Patient agrees to discharge treatment plan of care. No further questions noted by the patient. Critical care attestation.: If time is entered above; I have spent that time in minutes in the direct care of this critically ill patient, excluding procedure time. ED Disposition Clinical Impression: Medication refill Disposition: HOME / SELF CARE / HOMELESS Is pt being admited?: No Does the pt Need Aspirin: No Condition: Stable Additional Instructions: Follow-up with a primary care doctor in 3-5 days or if symptoms worsen and continue return to emergency room as soon as possible. Prescriptions: Amlodipine Besylate [Norvasc] 5 mg PO DAILY #30 tab Albuterol Mdi (or & Nicu Only) [ProAir HFA Inhaler] 2 puff IH QID PRN #8.5 gram PRN Reason: Shortness Of Breath Referrals: HAILE CAMPOS MD [Primary Care Provider] - 3-5 Days PRIMARY CAREMD [Referring] - 3-5 Days Time of Disposition: 12:12
[2022-01-15 12:23] VITALS: BP 152/90
== END 2022-01-15 12:22 | disposition home or self-care (01) ==
LOC: ED 11:25
DX: I10 Essential (primary) hypertension (principal); Z76.0 Encounter for issue of repeat prescription; Z87.891 Personal history of nicotine dependence; J45.909 Unspecified asthma, uncomplicated
CPT/HCPCS: 99282

== ENCOUNTER 2022-01-28 10:30 | Emergency (ER) | payer SELFPAY ==
[2022-01-28 11:21] VITALS: BP 140/90
[2022-01-28] MEDS ORDERED: ALBUTEROL 2.5 MG/3 ML NEBU IH ONE (11:22)
[2022-01-28] MEDS ORDERED: IPRATROPIUM 0.02% NEBU 2.5 ML IH ONE (11:22)
--- NOTE | 2022-01-28 11:22 | Emergency Department Report ---
Minor Respiratory - HPI Chief Complaint: Chest Pain Stated Complaint: CHEST PAINS/ ASTHMA Duration: 2 Days Pain Location: Chest Severity: mild Minor Respiratory: Yes Able to Tolerate Fluids, No Rhinorrhea, No Sore Throat, No Ear Pain, No Cough, No Sick Contacts, No Hemoptysis, No Chest Pain, No Shortness of Breath, No Fever Other History: 47 yo comes to ER with wheezing. He has asthma and his inhaler has not been working. no fever or chills. no purulent sputum. Ambulatory to ER with no hypoxia, tachycardia or hypotension. ED Review of Systems ROS: Stated complaint: CHEST PAINS/ ASTHMA Other details as noted in HPI Comment: All other systems reviewed and negative ED Past Medical Hx - Past Medical History Previous Medical History?: Yes Hx Hypertension: Yes Hx Asthma: Yes Additional medical history: chronic back pain - Surgical History Past Surgical History?: No - Family History Family history: no significant - Social History Smoking Status: Current Every Day Smoker Substance Use Type: None - Medications Home Medications: Home Medications Medication Instructions Recorded Confirmed Last Taken Type amLODIPine 5 mg PO DAILY 30 Days #30 tab 07/31/21 Unknown Rx Amlodipine Besylate [Norvasc] 5 mg PO DAILY #30 tab 01/15/22 Unknown Rx ALBUTEROL NEB's [Proventil 0.083% 2.5 mg IH TID PRN #1 box 01/28/22 Unknown Rx NEBS] Albuterol Mdi (or & Nicu Only) 2 puff IH QID PRN #1 inhalation 01/28/22 Unknown Rx [ProAir HFA Inhaler] Fluticasone [Flonase] 1 spray NS QDAY #1 bottle 01/28/22 Unknown Rx predniSONE [Deltasone] 20 mg PO DAILY #5 tablet 01/28/22 Unknown Rx Minor Respiratory Exam - Exam General: Vital signs noted. No distress. Alert and acting appropriately. HEENT: Yes Moist Mucous Membranes, No Pharyngeal Erythema, No Pharyngeal Exudates, No Rhinorrhea, No Conjuctival Injection, No Frontal Tenderness, No Maxillary Tenderness Ear: Neither TM Bulge, Neither TM Erythema, Neither EAC Pain, Neither EAC Discharge Neck: Yes Supple, No Adenopathy Lungs: Yes Good Air Exchange, Yes Wheezes, No Ronchi, No Stridor, No Cough, No Labored Respirations, No Retractions, No Use of Accessory Muscles, No Other Abnormal Lung Sounds Heart: Yes Regular, No Murmur Abdomen: Yes Normal Bowel Sounds, No Tenderness, No Peritoneal Signs Skin: No Rash, No Edema Neurologic: Alert and oriented, no deficits. Musculoskeletal: Unremarkable. ED Course Vital Signs 01/28/22 11:20 Temperature 97.9 F Pulse Rate 110 H Respiratory 20 Rate Blood Pressure 140/90 [Left] O2 Sat by Pulse 96 Oximetry ED Medical Decision Making - Radiology Data Radiology results: report reviewed, image reviewed NAP - Medical Decision Making Vital Signs 01/28/22 01/28/22 11:20 12:17 Temperature 97.9 F Pulse Rate 110 H Pulse Rate [ 96 H Anterior Bilateral Throughout] Pulse Rate [ 104 H Posterior Bilateral Throughout] Respiratory 20 Rate Respiratory 22 Rate [Anterior Bilateral Throughout] Respiratory 20 Rate [Posterior Bilateral Throughout] Blood Pressure 140/90 [Left] O2 Sat by Pulse 96 Oximetry duoneb and solumedrol IM given in ER dec wheezing noted p meds chest xray nap no indication for antibiotics pt being dc home with dc plan of care including diet, meds, activity and follow up. Pt given referral to pcp. Pt verbalizes understanding of plan of care. - Differential Diagnosis ASTHMA AE WITH OR WITHOUT Critical care attestation.: If time is entered above; I have spent that time in minutes in the direct care of this critically ill patient, excluding procedure time. ED Disposition Clinical Impression: Asthma with acute exacerbation Qualifiers: Asthma severity: mild Asthma persistence: intermittent Qualified Code(s): J45.21 - Mild intermittent asthma with (acute) exacerbation Disposition: 01 HOME / SELF CARE / HOMELESS Is pt being admited?: No Does the pt Need Aspirin: No Condition: Stable Instructions: Asthma, Adult Additional Instructions: MEDS ORDERED FOLLOW UP WITH PCP REFERRAL BELOW Prescriptions: predniSONE [Deltasone] 20 mg PO DAILY #5 tablet Fluticasone [Flonase] 1 spray NS QDAY #1 bottle Albuterol Mdi (or & Nicu Only) [ProAir HFA Inhaler] 2 puff IH QID PRN #1 inhalation PRN Reason: Shortness Of Breath ALBUTEROL NEB's [Proventil 0.083% NEBS] 2.5 mg IH TID PRN #1 box PRN Reason: Wheezing Referrals: HAILE CAMPOS MD [Staff Physician] - 3-5 Days Forms: Work/School Release Form(ED) Time of Disposition: 12:32
[2022-01-28] MEDS ORDERED: methylPREDNISolone Sod Succinate 125 MG/2 ML INJ IM ONE (11:23)
--- NOTE | 2022-01-28 11:59 | XRay Report ---
CHEST 2 VIEWS INDICATION / CLINICAL INFORMATION: Chest pain, shortness of breath for 3 days. COMPARISON: 07/31/2021 FINDINGS: SUPPORT DEVICES: None. HEART / MEDIASTINUM: No significant abnormality. LUNGS / PLEURA: No significant pulmonary or pleural abnormality. No pneumothorax. ADDITIONAL FINDINGS: No significant additional findings. IMPRESSION: 1. No acute findings. No change since 07/31/2021 exam. Signer Name: Yovani Padgett Jr, MD Signed: 01/28/2022 11:55 AM Workstation Name: [id number]
== END 2022-01-28 14:00 | disposition home or self-care (01) ==
LOC: ED 10:30
DX: J45.901 Unspecified asthma with (acute) exacerbation (principal); I10 Essential (primary) hypertension; G89.29 Other chronic pain; F17.200 Nicotine dependence, unspecified, uncomplicated; Z79.899 Other long term (current) drug therapy
CPT/HCPCS: 71046; 94640; 96372; 99283; J2930; 94644

== ENCOUNTER 2022-02-02 12:45 | Emergency (ER) | payer SELFPAY ==
--- NOTE | 2022-02-02 13:24 | Emergency Department Report ---
Stated Complaint: MUSCLE SPASM/SINUS INFECTION/CHEST PAIN - HPI History of Present Illness: 47 Y with HTN , report muscle spasm of left upper back pain and chest discomfort for about 2 week and report nasal congestion. 8/10 pain of back , chest pain is 7/10, worst with cough and breathing. - ROS Review of Systems: chest pain muscle spasm left upper back - Exam Vital Signs: Vital Signs 02/02/22 13:16 Temperature 98.7 F Pulse Rate 113 H Blood Pressure 156/108 [Right] MSE screening note: Focused history and physical exam performed. Due to findings the following was ordered: MSE complete. Orders to be placed. Patient to be seen by another provider in the back. Triage complete. ED Disposition for MSE Condition: Stable
--- NOTE | 2022-02-02 14:27 | XRay Report ---
CHEST 2 VIEWS INDICATION / CLINICAL INFORMATION: chest pain. COMPARISON: 01/28/2022 FINDINGS: SUPPORT DEVICES: None. HEART / MEDIASTINUM: No significant abnormality. LUNGS / PLEURA: No significant pulmonary or pleural abnormality. No pneumothorax. ADDITIONAL FINDINGS: No significant additional findings. IMPRESSION: 1. No acute findings. Signer Name: Jose Juarez MD Signed: 02/02/2022 2:23 PM Workstation Name: [id number]
[2022-02-02 14:58] LABS: Alanine Aminotransferase 16 units/L (7-56); Albumin 4.4 g/dL (3.9-5); BUN/Creatinine Ratio 10; Blood Urea Nitrogen 9 mg/dL (9-20); Calcium 9.2 mg/dL (8.4-10.2); Hematocrit 40.2 % (35.5-45.6); Hemoglobin 13.7 gm/dl (11.8-15.2); Hemolysis Index 5; Mean Corpuscular HGB Conc 34 % (32-34); Mean Corpuscular Volume 96 fl (84-94); Platelet Count 286 K/mm3 (140-440); Red Blood Count 4.17 M/mm3 (3.65-5.03); Red Cell Distribution Width 13.9 % (13.2-15.2)
--- NOTE | 2022-02-02 16:25 | Emergency Department Report ---
ED General Adult HPI - General Chief complaint: Back Pain/Injury Stated complaint: MUSCLE SPASM/SINUS INFECTION/CHEST PAIN Source: patient Mode of arrival: Ambulatory Limitations: No Limitations - History of Present Illness Initial comments: 47 Y with HTN , report muscle spasm of left upper back pain and chest discomfort for about 2 week and report nasal congestion. 8/10 pain of back , chest pain is 7/10, worst with cough and breathing. Patient reports no other acute signs or symptoms at this time. - Related Data Previous Rx's Medication Instructions Recorded Last Taken Type amLODIPine 5 mg PO DAILY 30 Days #30 tab 07/31/21 Unknown Rx Amlodipine Besylate [Norvasc] 5 mg PO DAILY #30 tab 01/15/22 Unknown Rx ALBUTEROL NEB's [Proventil 0.083% 2.5 mg IH TID PRN #1 box 01/28/22 Unknown Rx NEBS] Albuterol Mdi (or & Nicu Only) 2 puff IH QID PRN #1 inhalation 01/28/22 Unknown Rx [ProAir HFA Inhaler] Fluticasone [Flonase] 1 spray NS QDAY #1 bottle 01/28/22 Unknown Rx predniSONE [Deltasone] 20 mg PO DAILY #5 tablet 01/28/22 Unknown Rx Albuterol Sulfate [Proair 90 mcg IH Q4HR PRN 30 Days #1 02/02/22 Unknown Rx Digihaler] inhalation Amoxicillin/K Clav Tab [Augmentin 1 tab PO Q12HR 7 Days #14 tab 02/02/22 Unknown Rx 875 mg] Cyclobenzaprine [Flexeril] 10 mg PO TID PRN 10 Days #30 tab 02/02/22 Unknown Rx amLODIPine 5 mg PO DAILY 30 Days #30 tab 02/02/22 Unknown Rx Allergies Allergy/AdvReac Type Severity Reaction Status Date / Time No Known Allergies Allergy Verified 02/02/22 13:21 ED Review of Systems ROS: Stated complaint: MUSCLE SPASM/SINUS INFECTION/CHEST PAIN Other details as noted in HPI Comment: All other systems reviewed and negative ENT: congestion Respiratory: denies: shortness of breath Cardiovascular: chest pain. denies: palpitations Musculoskeletal: myalgia, other (Muscle spasms to the upper left back. As well as chest wall muscle pain) ED Past Medical Hx - Past Medical History Previous Medical History?: No Hx Hypertension: Yes Hx Asthma: Yes Additional medical history: chronic back pain - Social History Smoking Status: Current Every Day Smoker Substance Use Type: None - Medications Home Medications: Home Medications Medication Instructions Recorded Confirmed Last Taken Type amLODIPine 5 mg PO DAILY 30 Days #30 tab 07/31/21 Unknown Rx Amlodipine Besylate [Norvasc] 5 mg PO DAILY #30 tab 01/15/22 Unknown Rx ALBUTEROL NEB's [Proventil 0.083% 2.5 mg IH TID PRN #1 box 01/28/22 Unknown Rx NEBS] Albuterol Mdi (or & Nicu Only) 2 puff IH QID PRN #1 inhalation 01/28/22 Unknown Rx [ProAir HFA Inhaler] Fluticasone [Flonase] 1 spray NS QDAY #1 bottle 01/28/22 Unknown Rx predniSONE [Deltasone] 20 mg PO DAILY #5 tablet 01/28/22 Unknown Rx Albuterol Sulfate [Proair 90 mcg IH Q4HR PRN 30 Days #1 02/02/22 Unknown Rx Digihaler] inhalation Amoxicillin/K Clav Tab [Augmentin 1 tab PO Q12HR 7 Days #14 tab 02/02/22 Unknown Rx 875 mg] Cyclobenzaprine [Flexeril] 10 mg PO TID PRN 10 Days #30 tab 02/02/22 Unknown Rx amLODIPine 5 mg PO DAILY 30 Days #30 tab 02/02/22 Unknown Rx ED Physical Exam - General Limitations: No Limitations General appearance: alert, in no apparent distress - Head Head exam: Present: atraumatic, normocephalic - Eye Eye exam: Present: normal appearance - ENT ENT exam: Present: mucous membranes moist - Neck Neck exam: Present: normal inspection - Respiratory Respiratory exam: Present: normal lung sounds bilaterally. Absent: respiratory distress - Cardiovascular Cardiovascular Exam: Present: regular rate, normal rhythm, other (Chest wall tenderness noted). Absent: systolic murmur, diastolic murmur, rubs, gallop - GI/Abdominal GI/Abdominal exam: Present: soft, normal bowel sounds - Rectal Rectal exam: Present: deferred - Extremities Exam Extremities exam: Present: normal inspection - Back Exam Back exam: Present: normal inspection, tenderness (Left upper back up under scapula), muscle spasm (Left upper back) - Neurological Exam Neurological exam: Present: alert, oriented X3 - Psychiatric Psychiatric exam: Present: normal affect, normal mood - Skin Skin exam: Present: warm, dry, intact, normal color. Absent: rash ED Course Vital Signs 02/02/22 02/02/22 13:16 16:43 Temperature 98.7 F Pulse Rate 113 H 96 H Respiratory 18 Rate Blood Pressure 156/108 152/98 [Right] O2 Sat by Pulse 98 Oximetry ED Medical Decision Making - Lab Data Result diagrams: 02/02/22 13:55 02/02/22 13:55 - Radiology Data Radiology results: report reviewed, image reviewed [facility] [address] [place] [address] XRay Report Signed Patient: EMY SUAREZ JR MR#: [id number] : 1975 Acct:[id number] Age/Sex: 47 / M ADM Date: 02/02/22 Loc: ED Attending Dr: Ordering Physician: JOLLY VELÁZQUEZ NP Date of Service: 02/02/22 Procedure(s): XR chest routine 2V Accession Number(s): [id number] cc: JOLLY VELÁZQUEZ NP Fluoro Time In Minutes: CHEST 2 VIEWS INDICATION / CLINICAL INFORMATION: chest pain. COMPARISON: 01/28/2022 FINDINGS: SUPPORT DEVICES: None. HEART / MEDIASTINUM: No significant abnormality. LUNGS / PLEURA: No significant pulmonary or pleural abnormality. No pneumothorax. ADDITIONAL FINDINGS: No significant additional findings. IMPRESSION: 1. No acute findings. Signer Name: Jose Juarez MD Signed: 02/02/2022 2:23 PM Workstation Name: [id number] Transcribed By: PINEDA Dictated By: Jose Juarez MD Electronically Authenticated By: Jose Juarez MD Signed Date/Time: 02/02/221422 DD/ 21 TD/TT: - Medical Decision Making 47-year-old male complaints of chest pain, nasal congestion, right upper back muscle spasm. Patient reports having symptoms about 1 week. Patient also reporting medication refill for his amlodipine 5 mg and his albuterol inhaler. On physical exam there is chest wall tenderness to the left chest near his pectoral region. As well as left upper back tenderness noted up under left scapula. Patient clear to auscultation of lung fernandes. Patient does have nasal congestion with postnasal drip. Labs unremarkable. EKG with no acute changes noted. Chest x-ray negative. Based off clinical presentation and clinical diagnostics patient is experiencing chest wall tenderness due to muscle and not cardiac related in nature. Patient is stable for discharge home with follow-up with his primary care provider. Patient discharged with antibiotics for sinus infection, muscle relaxant for muscle spasm, refill of his amlodipine 5 blood pressure pill as well as albuterol inhaler. Patient agrees with plan of care and verbalized understanding patient informed if symptoms are to return or get worse to return back to the ER. Vital Signs 02/02/22 02/02/22 13:16 16:43 Temperature 98.7 F Pulse Rate 113 H 96 H Respiratory 18 Rate Blood Pressure 156/108 152/98 [Right] O2 Sat by Pulse 98 Oximetry Lab Results 02/02/22 02/02/22 Range/Units 13:55 13:55 WBC 14.4 H (4.5-11.0) K/mm3 RBC 4.17 (3.65-5.03) M/mm3 Hgb 13.7 (11.8-15.2) gm/dl Hct 40.2 (35.5-45.6) % MCV 96 H (84-94) fl MCH 33 H (28-32) pg MCHC 34 (32-34) % RDW 13.9 (13.2-15.2) % Plt Count 286 (140-440) K/mm3 Lymph # (Auto) Assembly Press Operator Add Manual Diff Complete Total Counted 100 Seg Neuts % (Manual) 87.0 H (40.0-70.0) % Band Neutrophils % 2.0 % Lymphocytes % (Manual) 7.0 L (13.4-35.0) % Reactive Lymphs % (Man) 1.0 % Monocytes % (Manual) 3.0 (0.0-7.3) % Eosinophils % (Manual) 0 (0.0-4.3) % Basophils % (Manual) 0 (0.0-1.8) % Metamyelocytes % 0 % Myelocytes % 0 % Promyelocytes % 0 % Blast Cells % 0 % Nucleated RBC % Not Reportable Seg Neutrophils # Man 12.5 H (1.8-7.7) K/mm3 Band Neutrophils # 0.3 K/mm3 Lymphocytes # (Manual) 1.0 L (1.2-5.4) K/mm3 Abs React Lymphs (Man) 0.1 K/mm3 Monocytes # (Manual) 0.4 (0.0-0.8) K/mm3 Eosinophils # (Manual) 0.0 (0.0-0.4) K/mm3 Basophils # (Manual) 0.0 (0.0-0.1) K/mm3 Metamyelocytes # 0.0 K/mm3 Myelocytes # 0.0 K/mm3 Promyelocytes # 0.0 K/mm3 Blast Cells # 0.0 K/mm3 WBC Morphology Not Reportable Hypersegmented Neuts Not Reportable Hyposegmented Neuts Not Reportable Hypogranular Neuts Not Reportable Smudge Cells Not Reportable Toxic Granulation Not Reportable Toxic Vacuolation Not Reportable Dohle Bodies Not Reportable Pelger-Huet Anomaly Not Reportable Jonatan Rods Not Reportable Platelet Estimate Consistent w auto Clumped Platelets Not Reportable Plt Clumps, EDTA Not Reportable Large Platelets Not Reportable Giant Platelets Not Reportable Platelet Satelliting Not Reportable Plt Morphology Comment Not Reportable RBC Morphology Normal Dimorphic RBCs Not Reportable Polychromasia Not Reportable Hypochromasia Not Reportable Poikilocytosis Not Reportable Anisocytosis Not Reportable Microcytosis Not Reportable Macrocytosis Not Reportable Spherocytes Not Reportable Pappenheimer Bodies Not Reportable Sickle Cells Not Reportable Target Cells Not Reportable Tear Drop Cells Not Reportable Ovalocytes Not Reportable Helmet Cells Not Reportable [place] Bodies Not Reportable Inverness Rings Not Reportable Fredis Cells Not Reportable Bite Cells Not Reportable Crenated Cell Not Reportable Elliptocytes Not Reportable Acanthocytes (Spur) Not Reportable Rouleaux Not Reportable Hemoglobin C Crystals Not Reportable Schistocytes Not Reportable Malaria parasites Not Reportable Chuck Bodies Not Reportable Hem Pathologist Commnt No Sodium 140 (137-145) mmol/L Potassium 3.5 L (3.6-5.0) mmol/L Chloride 102.0 (98-107) mmol/L Carbon Dioxide 27 (22-30) mmol/L Anion Gap 15 mmol/L BUN 9 (9-20) mg/dL Creatinine 0.9 (0.8-1.3) mg/dL Estimated GFR > 60 ml/min BUN/Creatinine Ratio 10 % Glucose 87 (75-100) mg/dL Calcium 9.2 (8.4-10.2) mg/dL Total Bilirubin < 0.20 (0.1-1.2) mg/dL AST 15 (5-40) units/L ALT 16 (7-56) units/L Alkaline Phosphatase 111 (35-129) units/L Troponin T < 0.010 (0.00-0.029) ng/mL Total Protein 7.0 (6.3-8.2) g/dL Albumin 4.4 (3.9-5) g/dL Albumin/Globulin Ratio 1.7 % Critical care attestation.: If time is entered above; I have spent that time in minutes in the direct care of this critically ill patient, excluding procedure time. ED Disposition Clinical Impression: Chest pain, non-cardiac, Muscle pain, Medication refill Back pain Qualifiers: Back pain location: thoracic back pain Chronicity: acute Back pain laterality: left Qualified Code(s): M54.6 - Pain in thoracic spine Acute sinusitis Qualifiers: Sinusitis location: maxillary Recurrence: non-recurrent Qualified Code(s): J01.00 - Acute maxillary sinusitis, unspecified Disposition: HOME / SELF CARE / HOMELESS Is pt being admited?: No Condition: Stable Instructions: Nonspecific Chest Pain, Adult, Musculoskeletal Pain, Chest Wall Pain Prescriptions: amLODIPine 5 mg PO DAILY 30 Days #30 tab Amoxicillin/K Clav Tab [Augmentin 875 mg] 1 tab PO Q12HR 7 Days #14 tab Cyclobenzaprine [Flexeril] 10 mg PO TID PRN 10 Days #30 tab PRN Reason: Muscle Spasm Albuterol Sulfate [Proair Digihaler] 90 mcg IH Q4HR PRN 30 Days #1 inhalation PRN Reason: Wheezing Referrals: PRIMARY CARE,MD [Primary Care Provider] - 3-5 Days
[2022-02-02 16:45] VITALS: BP 152/98
[2022-02-02 17:34] LABS: Band Neutrophils # (Manual) 0.3 K/mm3; Basophils % (Manual) 0 % (0.0-1.8); Eosinophils % (Manual) 0 % (0.0-4.3); Platelet Estimate Consistent w Auto; RBC Morphology Normal; Total Cells Counted 100
--- NOTE | 2022-02-04 10:50 | Electrocardiograph Report ---
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
== END 2022-02-02 18:30 | disposition home or self-care (01) ==
LOC: ED 12:45
DX: R07.89 Other chest pain (principal); M54.6 Pain in thoracic spine; J01.90 Acute sinusitis, unspecified; M79.18 Myalgia, other site; I10 Essential (primary) hypertension; J45.909 Unspecified asthma, uncomplicated; F17.200 Nicotine dependence, unspecified, uncomplicated; G89.29 Other chronic pain; Z79.899 Other long term (current) drug therapy
CPT/HCPCS: 36415; 71046; 80053; 84484; 85007; 85025; 93005; 99283